=== PATIENT | male | born 1970 | race African-American/Black ===

== ENCOUNTER 2016-11-12 07:04 | Inpatient (IN) ==
[2016-11-12] MEDS ORDERED: DUONEB (A & A) INH ONE (07:09)
[2016-11-12] MEDS ORDERED: DEPO-MEDROL IM ONE (07:09)
[2016-11-12 07:44] LABS: MANUAL DIFF NEEDED? NO
[2016-11-12 07:56] LABS: BASO% 0.1 % (0.0-0.8); EOS# 0.02 X1000 (0.0-0.7); EOS% 0.1 % (0.0-10.0); HEMATOCRIT 41.9 % (42.0-52.0); HEMOGLOBIN 13.7 g/dL (14.0-18.0); IMM GRAN# 0.08 X1000 (0.0-0.04); IMM GRAN% 0.5 % (0.0-0.5); LYMPH# 3.43 X1000 (1.2-3.4); LYMPH% 19.4 % (20.5-51.1); MCH 28.1 PG (27-31); MCHC 32.7 g/dL (33-37); MONO# 1.65 X1000 (0.11-0.59); MONO% 9.3 % (1.7-9.3); MPV 10.1 FL (7.4-10.4); NEUT% 70.6 % (42.2-75.2); PLT 243 X1000 (130-400); RBC 4.87 XMIL (4.7-6.1)
--- NOTE | 2016-11-12 08:03 | Diag Imaging Result Doc PS360 ---
EXAM: CHEST-PORTABLE - 11/12/2016 HISTORY: sob TECHNIQUE: Portable chest 7:41 AM COMPARISON: 11/11/2016 FINDINGS: Heart size is normal. Inspiration is mildly shallow, mild subsegmental atelectasis at the lung bases. The lungs otherwise appear clear. There is no pleural effusion or pneumothorax identified. IMPRESSION: Mildly shallow inspiration with mild basilar subsegmental atelectasis. No other evidence of acute disease. Electronically signed by Umesh Katz 11/12/2016 8:01 AM
[2016-11-12 08:11] LABS: AGAP 11; ALBUMIN 4.1 g/dL (3.5-5.0); ALKALINE PHOSPHATASE 69 U/L (32-122); BUN 17 mg/dL (8-22); CALCIUM 9.6 mg/dL (8.8-10.2); CHLORIDE 103 mmol/L (98-107); COSMO 280; GOT 37 U/L (10-34); GPT 62 U/L (10-44); POTASSIUM 3.8 mmol/L (3.5-5.1); SODIUM 139 mmol/L (136-145); TCO2 25 mmol/L (25-35); TOTAL PROTEIN 6.4 g/dL (6.3-8.3)
--- NOTE | 2016-11-12 08:34 | PROVIDER DOCUMENTATION ---
HPI-General Adult - General Chief Complaint: Wheezing Stated Complaint: SOB Time Seen by Provider: 11/12/16 07:07 Source: patient Unable to obtain history due to:: urgency Allergies/Adverse Reactions: Patient Allergies Allergy/AdvReac Type Severity Reaction Status Date / Time No Known Allergies Allergy Verified 11/12/16 07:14 Home Medications: Home Medication List Medication Instructions Recorded Confirmed Last Taken Type Albuterol 2.5MG/Ipratrop 0.5MG 3 ml INH Q6H PRN PRN #60 neb 06/05/14 11/11/16 Unknown Rx [Duoneb] Inhaler, Assist Devices [Space 1 each MC NOW #1 spacer 06/05/14 11/11/16 Unknown Rx Chamber Plus] Amoxicillin/Pot Clavulanate 875 mg PO Q12HR #14 tablet 11/11/16 Unknown Rx [Augmentin] Ipratropium/Albuterol INH 1 puff INH RTQ6H #1 inhaler 11/11/16 Unknown Rx [Combivent Respimat Inhaler] Prednisone 10 mg PO DAILY #21 tablet 11/11/16 Unknown Rx - History of Present Illness -Gen Adult Nature of Presenting Problems: 46 year old complains of dyspnea. Has a history of asthma, and was seen several times in the ED. Location of Pain/Injury: reports: none Pain Radiation: reports: no radiation Quality of Pain: reports: none Onset/Duration: reports: 3 days ago Timing: reports: still present Context/Activities at Onset: reports: none Modifying Factors: improves with: nothing Associated Symptoms: reports: sinus congestion/drainage Similar Symptoms Previously?: Yes Recently seen or treated by another doctor?: Yes - Diabetes Related Context Context: denies: low blood sugar - Sickle Cell Pain Related Context Sickle Cell Pain Location: reports: none Review of Systems - Adult - REVIEW OF SYSTEMS - ADULT Constitutional: reports: no symptoms reported Eyes: reports: no symptoms reported Ears, Nose, Mouth & Throat: reports: no symptoms reported Cardiovascular: reports: no symptoms reported Respiratory: reports: see HPI, cough, dyspnea on exertion, pleurisy, shortness of breath, wheezing Gastrointestinal: reports: no symptoms reported Genitourinary: reports: no symptoms reported Musculoskeletal: reports: no symptoms reported Integumentary: reports: no symptoms reported Neurological: reports: no symptoms reported Psychiatric: reports: no symptoms reported Endocrine: reports: no symptoms reported Hematologic/Lymphatic: reports: no symptoms reported Allergic/Immunologic: reports: no symptoms reported Past History - Adult - PAST MEDICAL HISTORY-ADULT Review of Records: reports: Old Records Reviewed, Nursing Assessment Review, Medications Reviewed, Social history reviewed & non-contributory. Cardiovascular: reports: HTN Respiratory: reports: asthma - PRIOR SURGERIES/PROCEDURES Surgical/Procedure History: reports: none - IMMUNIZATION STATUS Childhood Immunizations: See Nurse Assessment Flu Vaccine: See Nurse Assessment - FAMILY HISTORY Family History: reviewed, not pertinent Physical Exam-General - PHYSICAL EXAM-ADULT Initial Vital Signs Reviewed: Yes - CONSTITUTIONAL General Appearance: mild distress - EYES Eyes: PERRL/EOMI, pink conjunctivae - HEAD, EARS, NOSE, MOUTH & THROAT HENMT: normocephalic/atraumatic, moist mucous membranes - NECK Neck: non-tender, full range of motion - RESPIRATORY Respiratory: chest non-tender, decreased breath sounds, wheezing, prolonged expiration - CARDIOVASCULAR Cardiovascular: normal peripheral pulses, regular rate, rhythm - GASTROINTESTINAL (ABDOMEN) Abdominal Exam: normal bowel sounds, non tender - LYMPHATIC Lymphatic: no adenopathy - MUSCULOSKELETAL Back Exam: normal inspection Extremity: normal range of motion, non-tender - SKIN Integumentary: normal color, normal turgor - NEUROLOGIC Neurologic: tests superintendent II-XII nml as tested, grossly normal, abnormal cerebellar tests - PSYCHIATRIC Psych/Mental Status: normal mood/affect, normal thought content Progress - PLAN OF CARE/RESULTS Progress/Plan/Lab Results: Vital Signs - 8 hr 11/12/16 07:10 Temperature 98.3 F Pulse Rate 75 Respiratory Rate 28 H Blood Pressure 162/103 O2 Sat by Pulse Oximetry 100 Laboratory Results - last 24 hr 11/12/16 11/12/16 11/12/16 07:41 07:41 07:41 WBC 17.66 H D RBC 4.87 Hgb 13.7 L Hct 41.9 L MCV 86.0 MCH 28.1 MCHC 32.7 L RDW Std Deviation 16.1 H Plt Count 243 MPV 10.1 Immature Gran % (Auto) 0.5 Neut % (Auto) 70.6 Lymph % (Auto) 19.4 L Gaston % (Auto) 9.3 Eos % (Auto) 0.1 Baso % (Auto) 0.1 Immature Gran # (Auto) 0.08 H Neut # (Auto) 12.46 H Lymph # (Auto) 3.43 H Gaston # (Auto) 1.65 H Eos # (Auto) 0.02 Baso # (Auto) 0.02 Sodium 139 Potassium 3.8 Chloride 103 Carbon Dioxide 25 Anion Gap 11 BUN 17 Creatinine 1.1 Estimated GFR/1.73 m2 > 60 BUN/Creatinine Ratio 15 Glucose 106 H Calculated Osmolality 280 Calcium 9.6 Total Bilirubin 0.20 AST 37 H ALT 62 H Alkaline Phosphatase 69 Troponin T 0.064 D Total Protein 6.4 Albumin 4.1 Globulin 2.0 Albumin/Globulin Ratio 2.0 Orders Category Date Time Status CHEST-PORTABLE [RAD] Stat Exams 11/12/16 07:09 Completed CBC WITH DIFF [HEME] Stat Lab 11/12/16 07:41 Completed COMPREHENSIVE METABOLIC PANEL [CHEM] Stat Lab 11/12/16 07:41 Completed TROPONIN T Stat Lab 11/12/16 07:41 Completed Albuterol 2.5MG/Ipratrop 0.5MG [Duoneb (A & A)] Med 11/12/16 07:09 Discontinued 3 ml INH NOW ONE Methylprednisolone Acetate [Depo-Medrol] Med 11/12/16 07:09 Discontinued 80 mg IM NOW ONE Aerosol Treatments Routine Oth 11/12/16 07:09 Active Aerosol Treatments Stat Oth 11/12/16 07:09 Active Result Diagrams: 11/12/16 07:41 11/12/16 07:41 Departure - Departure Date of Disposition Decision: 11/12/16 Time of Disposition Decision: 08:33 DIAGNOSIS: Asthma attack Disposition: ADMITTED INPATIENT 09 Certified Medical Emergency: Emergent Condition: Stable Referrals and Follow-Ups: Viviane Mullen MD [Primary Care Provider] - - Critical Care Note This patient required my direct & personal management of CC.: No Attestation - Physician/ HAL Attestation The physician spent face to face time with patient:: Yes Advanced Practice Provider documentation review:: Supervising physician onsite and consulted in the evaluation and care of this patient. The physician did have a face to face encounter with the patient.
[2016-11-12] MEDS ORDERED: DUONEB (A & A) INH PRN (10:08)
[2016-11-12] MEDS: NS 1,000 ML IV SCH (10:39)
[2016-11-12] MEDS: SOLU-MEDROL IV SCH ×2 (10:39→17:18)
[2016-11-12] MEDS: DUONEB (A & A) INH SCH ×4 (10:55→23:25)
[2016-11-12] MEDS ORDERED: ROBITUSSIN-AC PO PRN (11:11)
[2016-11-12] MEDS: LEVAQUIN 750 MG/D5W 750 MG/150 ML IVPB IV SCH (12:51)
[2016-11-12 13:53] LABS: CK INDEX 1.9 (0.0-2.5); CK-MB 9.47 ng/mL (0.0-5.0)
--- NOTE | 2016-11-12 14:08 | EKG Report ---
Test Performed on : 11/12/2016 07:21:57 AM Test Reason : cp Blood Pressure : / mmHG Vent. Rate : 066 BPM Atrial Rate : 066 BPM P-R Int : 180 ms QRS Dur : 082 ms QT Int : 384 ms P-R-T Axes : 059 -06 051 degrees QTc Int : 402 ms Sinus rhythm. with marked sinus arrhythmia. Nonspecific T wave abnormality Abnormal ECG When compared with ECG of 11-NOV-2016 02:27, Nonspecific T wave abnormality now evident in Inferior leads T wave inversion now evident in Lateral leads QT has shortened Unconfirmed Result
[2016-11-12 21:57] LABS: CK INDEX 1.7 (0.0-2.5); CK-MB 6.2 ng/mL (0.0-5.0)
[2016-11-13] MEDS: NS 1,000 ML IV SCH (01:30)
[2016-11-13] MEDS: SOLU-MEDROL IV SCH ×3 (01:30→16:50)
[2016-11-13] MEDS: DUONEB (A & A) INH SCH ×6 (03:28→23:25)
[2016-11-13 05:34] LABS: HEMATOCRIT 40.3 % (42.0-52.0); HEMOGLOBIN 12.8 g/dL (14.0-18.0); MCH 27.4 PG (27-31); MCHC 31.8 g/dL (33-37); MCV 86.3 FL (81-99); MPV 10.3 FL (7.4-10.4); RBC 4.67 XMIL (4.7-6.1)
[2016-11-13 06:01] LABS: AGAP 13; ALKALINE PHOSPHATASE 62 U/L (32-122); BUN 16 mg/dL (8-22); CALCIUM 8.4 mg/dL (8.8-10.2); CHLORIDE 105 mmol/L (98-107); COSMO 284; GOT 14 U/L (10-34); GPT 43 U/L (10-44); POTASSIUM 4.2 mmol/L (3.5-5.1); SODIUM 141 mmol/L (136-145); TCO2 23 mmol/L (25-35); TOTAL PROTEIN 5.6 g/dL (6.3-8.3)
[2016-11-13] MEDS: PRILOSEC PO SCH (06:10)
[2016-11-13] MEDS: ADVAIR 250/50 DISKUS INH SCH ×2 (07:14→19:42)
[2016-11-13] MEDS ORDERED: NS 1,000 ML IV ONE (08:16)
[2016-11-13] MEDS: LOVENOX SUBQ SCH (08:43)
[2016-11-13] MEDS: PRINIVIL PO SCH (08:43)
--- NOTE | 2016-11-13 08:58 | PROGRESS NOTE ---
DATE: 11/13/2016 SUBJECTIVE: The patient notes that he is feeling better. Still short of breath, still wheezing, but notes his breathing overall is improved since admission to the hospital. Denies any chest pain. Denies any GI or issues. PHYSICAL EXAMINATION: Vital Signs: Temperature 98, pulse 73, respiratory rate 18, blood pressure 155/83, sat 97% on room air. General: Patient is awake, alert, currently in mild to moderate respiratory distress. He is having wheezing, but improved. HEENT: Normocephalic, atraumatic. Neck: Supple. Cardiovascular: Regular rate. Chest: Breath sounds bilaterally, although still wheezing. Still decreased slightly compared to yesterday's exam, but again improved. Abdomen: Soft, obese. Extremities: Moves all extremities. Neurologic: No changes. LABS: Reviewed. WBCs 18. Hemoglobin and hematocrit 12 and 40. CMP essentially normal. ASSESSMENT: Elevated cardiac enzymes. Have continued to trend down. Troponin at its highest was 0.064. Expect this to be more cardiac strain than true myocardial infarction, secondary to how hypoxic and how much he was wheezing. He has improved clinically. We will decrease his steroids to 40 q.8. Hopefully home tomorrow. Discussed with patient the importance of controlling asthma. We will continue to follow. cc: Jaren Monge MD
[2016-11-13] MEDS: LEVAQUIN 750 MG/D5W 750 MG/150 ML IVPB IV SCH (11:30)
[2016-11-14] MEDS: SOLU-MEDROL IV SCH ×2 (00:10→10:14)
[2016-11-14] MEDS: DUONEB (A & A) INH SCH ×3 (04:11→11:50)
[2016-11-14] MEDS: PRILOSEC PO SCH (06:04)
[2016-11-14] MEDS: ADVAIR 250/50 DISKUS INH SCH (08:23)
[2016-11-14] MEDS ORDERED: LEVAQUIN PO SCH (09:00)
[2016-11-14] MEDS: LOVENOX SUBQ SCH (10:14)
[2016-11-14] MEDS: PRINIVIL PO SCH (10:14)
[2016-11-14 12:03] VITALS: BP 146/75
--- NOTE | 2016-11-17 17:39 | HISTORY AND PHYSICAL ---
CHIEF COMPLAINT: Shortness of breath, wheezing. HISTORY OF PRESENT ILLNESS: The patient is a 46-year-old male who has a known history of asthma. He states he has been in his usual state of health until recently. He had been on Advair or some type of long-acting beta-agonist in the past. However, he notes that he has not been taking this in the past couple of years. He did start reusing his albuterol at home but this has not been successful and finally came to the ER today. He states he has had symptoms off and on for the past week that have continued to worsen. ALLERGIES: No known drug allergies. MEDICATIONS: Albuterol, recently been on Augmentin and prednisone with his breathing. PAST MEDICAL HISTORY: Obesity, hypertension, asthma. REVIEW OF SYSTEMS: As noted above. Positive wheezing, coughing, congestion, shortness of breath. Denies any chest pain or palpitations. Does have dyspnea on exertion secondary to his wheezing. He denies any nausea, vomiting, hematochezia, melena, hematemesis. He denies any swelling in his lower extremities. FAMILY HISTORY: No family history of asthma. SOCIAL HISTORY: Patient lives at home. He is employed. He has one child that is currently a high school ramonita. OBJECTIVE: Vital Signs: Reviewed. Temperature 98.3 degrees, pulse 75, respiratory rate 28, BP 162/103. General: Patient is awake, alert, oriented. Lungs: He is currently in moderate respiratory distress. HEENT: Normocephalic, atraumatic. [place]. Neck: Supple. Cardiovascular: Regular rate. No murmur. Chest: Decreased breath sounds but equal bilaterally. Moderate wheezing bilaterally. Moderately labored. No crackles. Abdomen: Soft, obese, nondistended. Extremities: Moves all extremities. Neurologic: No focal changes. Skin: Warm and dry. No rashes. DIAGNOSTIC DATA: WBC 17. Otherwise CBC and CMP is normal. Chest x-ray is clear. ASSESSMENT: 1. Asthma with moderate exacerbation. 2. Leukocytosis. 3. Hypertension. 4. Obesity. PLAN: We will admit patient to hospital with IV Solu-Medrol, breathing treatments, oxygen. We will place him on blood pressure medication. We will follow. cc: Jaren Monge MD
--- NOTE | 2016-11-17 18:10 | DISCHARGE SUMMARY ---
ADMISSION DATE: 11/12/2016 DISCHARGE DATE: 11/14/2016 DISCHARGE DIAGNOSES: 1. Asthma with moderate exacerbation, improved. 2. Obesity. 3. Hypertension. 4. Others. CONSULTATIONS: None. PROCEDURES: None. BRIEF HOSPITAL COURSE: Patient was admitted to the hospital as noted on the HPI and treated in the usual fashion. Given Solu-Medrol, antibiotics, breathing treatments and placed on blood pressure medication. Discussed with the patient current course. Patient had an uneventful hospital course. On discharge he was awake and alert. He was in no distress. He was feeling better and therefore he will be discharged home. DISPOSITION: The patient will be discharged home. Discussed with him that he needs to follow up outpatient with primary care of choice. He needs to follow up on his breathing as well as his blood pressure. 35 minutes were spent in total care. cc: Jaren Monge MD
== END 2016-11-14 12:10 | disposition home or self-care (01) ==
LOC: P.ED 07:04 → P.MEDSURG 07:04 → OBSVTOIN 09:01
PROVIDERS: ATTEND Family Medicine